=== PATIENT | female | born 1985 | race Caucasian/White ===

== ENCOUNTER 2022-02-28 13:15 | Emergency (ER) | payer MEDICARE | END 2022-02-28 14:16 | disposition home or self-care (01) | LOC: BURERS 13:15 | DX: U07.1 COVID-19 (principal) | CPT/HCPCS: 99283; U0003; U0005 ==

== ENCOUNTER 2023-04-15 20:55 | Emergency (ER) | payer MEDICARE ==
[2023-04-15] MEDS ORDERED: Azithromycin 250 MG TAB ONE (21:40)
== END 2023-04-15 21:52 | disposition home or self-care (01) ==
LOC: BURERS 20:55
DX: J01.00 Acute maxillary sinusitis, unspecified (principal)
CPT/HCPCS: 99283

== ENCOUNTER 2023-07-31 14:27 | Emergency (ER) | payer MEDICARE ==
[2023-07-31 16:01] LABS: SARS-CoV-2 NAA Rapid Test Not Detected (NotDetected)
== END 2023-07-31 15:36 | disposition home or self-care (01) ==
LOC: BURERS 14:27
DX: J20.9 Acute bronchitis, unspecified (principal); Z20.822 Contact with and (suspected) exposure to COVID-19
CPT/HCPCS: 0240U; 71045; 93005

== ENCOUNTER 2024-04-30 13:18 | Emergency (ER) | payer MEDICARE ==
[2024-04-30 14:42] LABS: #Basophils 0.1 thou/uL (0.0-0.2); #Eosinphils 0.2 thou/uL (0.0-0.7); #Lymphocytes 1.3 thou/uL (1.20-3.40); #Monocytes 0.6 thou/uL (0.11-0.59); #Neutrophils 6.6 thou/uL (1.40-6.50); %Basophils 1.1 % (0.0-1.0); %Eosinophils 2.3 % (0.0-10.0); %Lymphocytes 14.7 % (21.0-51.0); %Monocytes 6.6 % (0.0-10.0); %Neutrophils 75.3 % (42.0-75.0); Hematocrit 42.6 % (36.0-47.0); Hemoglobin 14.9 g/dL (12.0-16.0); Mean Corpuscular Hemoglobin 29.3 pg (27.0-31.0); Mean Corpuscular Volume 83.7 fl (78.0-98.0); Mean Platelet Volume 10.5 fL (7.4-10.4); Platelet Count 197 10x3/uL (130-400); RBC Distribution Width 11.4 % (11.5-14.5); Red Blood Cell (RBC) Count 5.09 mill/uL (4.20-5.40); White Blood Cell (WBC) Count 8.7 10x3/uL (4.8-10.8)
[2024-04-30 14:59] LABS: Bilirubin Negative (Negative); Blood, Urine Negative (Negative); Clarity Clear (Clear); Glucose, Urine (Dipstick) Negative (Negative); Ketone, Urine Negative (Negative); Leukocyte Negative (Negative); Nitrite Negative (Negative); Protein, Urine (Dipstick) Negative (Neg-Trace); Urobilinogen 0.2 mg/dL (Less than 2)
[2024-04-30 15:01] LABS: ALT (SGPT) 10 U/L (8-55); AST (SGOT) 14 U/L (5-34); Albumin 3.6 g/dL (3.5-5.0); Alkaline Phosphatase 60 U/L (40-110); Anion Gap 13 mmol/L (10-20); BUN (Urea Nitrogen) 16 mg/dL (7.0-18.7); Bilirubin, Total 0.7 mg/dL (0.2-1.2); Calc. Creatinine Clearance 0 mL/min (70-130); Carbon Dioxide 25 mmol/L (22-29); Chloride 103 mmol/L (98-107); Estimated GFR 85; Globulin 2.6 g/dL (2.4-3.5); Glucose 110 mg/dL (70-105); Potassium 3.4 mmol/L (3.5-5.1); Protein, Total 6.2 g/dL (6.0-8.3); Sodium 138 mmol/L (136-145)
[2024-04-30 15:20] LABS: CAUTI Indications for Culture Dysuria,urgency,freq; RBC/HPF None Seen HPF (0-3); WBC/HPF None Seen HPF (0-3)
[2024-04-30 15:21] LABS: Bacteria/HPF Rare-Few HPF (None Seen); Urine Culture Reflex No No
== END 2024-04-30 15:50 | disposition home or self-care (01) ==
LOC: BURERS 13:18
DX: I95.9 Hypotension, unspecified (principal)
CPT/HCPCS: 36415; 71045; 80053; 81001; 83605; 84443; 85025; 93005; 96360

== ENCOUNTER 2024-09-04 06:24 | Emergency (ER) | payer MEDICARE ==
[2024-09-04] MEDS ORDERED: AMOXicillin 250 MG CAP ONE (07:04)
== END 2024-09-04 07:19 | disposition home or self-care (01) ==
LOC: BURERS 06:24
DX: K04.7 Periapical abscess without sinus (principal); K02.9 Dental caries, unspecified
CPT/HCPCS: 99282

== ENCOUNTER 2025-04-26 22:09 | Emergency (ER) | payer MEDICARE ==
[2025-04-26] MEDS ORDERED: Clindamycin 150 MG CAP ONE (22:43)
== END 2025-04-26 22:52 | disposition home or self-care (01) ==
LOC: BURERS 22:09
DX: K04.7 Periapical abscess without sinus (principal); K02.9 Dental caries, unspecified; J44.9 Chronic obstructive pulmonary disease, unspecified; E03.9 Hypothyroidism, unspecified; F17.210 Nicotine dependence, cigarettes, uncomplicated; Z79.899 Other long term (current) drug therapy
CPT/HCPCS: 99282

== ENCOUNTER 2025-07-05 15:52 | Emergency (ER) | payer MEDICARE | END 2025-07-05 17:12 | disposition home or self-care (01) | LOC: BURERS 15:52 | DX: J20.9 Acute bronchitis, unspecified (principal); E03.9 Hypothyroidism, unspecified; F17.210 Nicotine dependence, cigarettes, uncomplicated | CPT/HCPCS: 71046; 87428 ==